=== PATIENT | male | born 1935 | race Caucasian/White ===

== ENCOUNTER 2018-10-01 03:53 | Inpatient (IN) ==
[2018-10-01] MEDS ORDERED: NS 1,000 ML IV ONE (04:17)
[2018-10-01] MEDS ORDERED: ZOFRAN IV ONE (04:17)
[2018-10-01 05:04] LABS: BASO# 0.02 X1000 (0.0-0.2); BASO% 0.2 % (0.0-0.8); EOS# 0.02 X1000 (0.0-0.7); EOS% 0.2 % (0.0-10.0); HEMATOCRIT 43.9 % (42.0-52.0); HEMOGLOBIN 14.1 g/dL (14.0-18.0); IMM GRAN# 0.06 X1000 (0.0-0.04); IMM GRAN% 0.6 % (0.0-0.5); LYMPH# 1.81 X1000 (1.2-3.4); LYMPH% 19.1 % (20.5-51.1); MCH 29.1 PG (27-31); MCHC 32.1 g/dL (33-37); MCV 90.7 FL (81-99); MONO# 1.24 X1000 (0.11-0.59); MONO% 13.1 % (1.7-9.3); MPV 10.9 FL (7.4-10.4); NEUT# 6.35 X1000 (1.4-6.5); NEUT% 66.8 % (42.2-75.2); PLT 134 X1000 (130-400); RBC 4.84 XMIL (4.7-6.1)
[2018-10-01 05:27] LABS: ALB/GLOB RATIO 1.7; ALBUMIN 4.1 g/dL (3.5-5.0); CALCIUM 9.2 mg/dL (8.8-10.2); CREATININE 1.3 mg/dL (0.7-1.2); POTASSIUM 3.9 mmol/L (3.5-5.1); TOTAL BILIRUBIN 0.76 mg/dL (0.20-1.00); TOTAL PROTEIN 6.5 g/dL (6.3-8.3)
[2018-10-01] MEDS ORDERED: TAMIFLU PO ONE (05:40)
--- NOTE | 2018-10-01 05:49 | PROVIDER DOCUMENTATION ---
HPI-General Adult - General Chief Complaint: Nausea/Vomiting Stated Complaint: FLU SX Time Seen by Provider: 10/01/18 04:07 Source: patient, family Allergies/Adverse Reactions: Patient Allergies Allergy/AdvReac Type Severity Reaction Status Date / Time Sulfa (Sulfonamide Allergy Unknown Verified 05/29/18 00:04 Antibiotics) amoxicillin trihydrate * AdvReac VOMITING Verified 05/29/18 00:04 [From Augmentin] potassium clavulanate * AdvReac VOMITING Verified 05/29/18 00:04 [From Augmentin] Home Medications: Home Medication List Medication Instructions Recorded Confirmed Last Taken Type Atenolol 50 mg PO BID 12/14/13 05/28/18 02/25/18 History Glimepiride 1 mg PO BID 02/25/18 05/28/18 02/25/18 History Chlorthalidone 25 mg PO DAILY PRN 05/28/18 05/28/18 Unknown History Clorazepate [Tranxene] 7.5 mg PO PRN PRN 05/28/18 05/28/18 Unknown History Finasteride [Proscar] 5 mg PO DAILY 05/28/18 05/28/18 Unknown History Losartan Potassium [Cozaar] 100 mg PO DAILY 05/28/18 05/28/18 Unknown History Tamsulosin HCl 0.4 mg PO QHS 05/28/18 05/28/18 Unknown History - History of Present Illness -Gen Adult Nature of Presenting Problems: Pt presents with flu like symptoms, x 3-4 days, cough, nasal congestion, body aches, n/v/d, pt upon arrival found to have O2 sat of 86% on RA, pt denies f/c, mercado, cp, ap, pt is lying in bed in no acute distress. Location of Pain/Injury: reports: generalized Pain Radiation: reports: no radiation Quality of Pain: reports: aching Severity: reports: mild Onset/Duration: reports: 4 days ago Timing: reports: still present Context/Activities at Onset: reports: none Modifying Factors: improves with: nothing Associated Symptoms: reports: cough, diarrhea, sinus congestion/drainage, nausea , vomiting Similar Symptoms Previously?: No Recently seen or treated by another doctor?: No Review of Systems - Adult - REVIEW OF SYSTEMS - ADULT Constitutional: reports: no symptoms reported Eyes: reports: no symptoms reported Ears, Nose, Mouth & Throat: reports: sinus problem Cardiovascular: reports: no symptoms reported Respiratory: reports: see HPI Gastrointestinal: reports: see HPI Genitourinary: reports: no symptoms reported Musculoskeletal: reports: no symptoms reported Integumentary: reports: no symptoms reported Neurological: reports: no symptoms reported Psychiatric: reports: no symptoms reported Endocrine: reports: no symptoms reported Hematologic/Lymphatic: reports: no symptoms reported Allergic/Immunologic: reports: no symptoms reported All Other Systems: Reviewed and Negative Past History - Adult - PAST MEDICAL HISTORY-ADULT Review of Records: reports: Old Records Reviewed, Nursing Assessment Review, Medications Reviewed, Social history reviewed & non-contributory. Major Childhood Illnesses: reports: denies history Cardiovascular: reports: CAD, HTN, hyperlipidemia, other (hole in heart- repaired) Respiratory: reports: denies history Gastrointestinal: reports: GERD Obstetrical/Gynecological: reports: denies history Genitourinary: reports: prostatitis (pt states has "prostate problems" ) Musculoskeletal: reports: denies history Neurological: reports: denies history Endocrine/Immune: reports: Diabetes, Leukemia (lymphatic; in remission) Other Conditions: reports: denies history, cataract/glaucoma - PRIOR SURGERIES/PROCEDURES Surgical/Procedure History: reports: appendectomy, CABG, orthopedic (extremity) (knee), other (prostate biopsy) - IMMUNIZATION STATUS Childhood Immunizations: See Nurse Assessment Flu Vaccine: See Nurse Assessment - FAMILY HISTORY Family History: reviewed, not pertinent Physical Exam-General - PHYSICAL EXAM-ADULT Initial Vital Signs Reviewed: Yes - CONSTITUTIONAL General Appearance: appears well - EYES Eyes: PERRL/EOMI - HEAD, EARS, NOSE, MOUTH & THROAT HENMT: normocephalic/atraumatic, normal ENT inspection - NECK Neck: full range of motion - RESPIRATORY Respiratory: lungs clear, no respiratory distress, no accessory muscle use - CARDIOVASCULAR Cardiovascular: regular rate, rhythm - GASTROINTESTINAL (ABDOMEN) Abdominal Exam: normal bowel sounds, non tender, soft - LYMPHATIC Lymphatic: no adenopathy - MUSCULOSKELETAL Back Exam: normal inspection Extremity: normal range of motion - SKIN Integumentary: normal color - NEUROLOGIC Neurologic: packing supervisor II-XII nml as tested - PSYCHIATRIC Psych/Mental Status: normal mood/affect Progress - PLAN OF CARE/RESULTS Progress/Plan/Lab Results: Vital Signs - 8 hr 10/01/18 03:58 Temperature 99.7 F H Pulse Rate 81 Respiratory Rate 17 Blood Pressure 126/66 O2 Sat by Pulse Oximetry 90 L 10/01/18 04:16 Influenza Screen - Final Nasopharyngeal Laboratory Results - last 24 hr 10/01/18 10/01/18 10/01/18 04:45 04:45 04:45 WBC 9.50 RBC 4.84 Hgb 14.1 Hct 43.9 MCV 90.7 MCH 29.1 MCHC 32.1 L RDW Std Deviation 14.0 Plt Count 134 MPV 10.9 H Immature Gran % (Auto) 0.6 H Neut % (Auto) 66.8 Lymph % (Auto) 19.1 L [place] % (Auto) 13.1 H Eos % (Auto) 0.2 Baso % (Auto) 0.2 Immature Gran # (Auto) 0.06 H Neut # (Auto) 6.35 Lymph # (Auto) 1.81 [place] # (Auto) 1.24 H Eos # (Auto) 0.02 Baso # (Auto) 0.02 Sodium 136 Potassium 3.9 Chloride 101 Carbon Dioxide 24 L Anion Gap 11 BUN 16 Creatinine 1.3 H Estimated GFR/1.73 m2 53 BUN/Creatinine Ratio 12 Glucose 146 H Calculated Osmolality 276 Calcium 9.2 Total Bilirubin 0.76 AST 35 H ALT 25 Alkaline Phosphatase 59 Troponin T Tth-Q-Swldqzxtkqm Pept Total Protein 6.5 Albumin 4.1 Globulin 2.4 Albumin/Globulin Ratio 1.7 Lipase 29 Plasma Lactate 1.1 10/01/18 10/01/18 04:45 04:45 WBC RBC Hgb Hct MCV MCH MCHC RDW Std Deviation Plt Count MPV Immature Gran % (Auto) Neut % (Auto) Lymph % (Auto) [place] % (Auto) Eos % (Auto) Baso % (Auto) Immature Gran # (Auto) Neut # (Auto) Lymph # (Auto) [place] # (Auto) Eos # (Auto) Baso # (Auto) Sodium Potassium Chloride Carbon Dioxide Anion Gap BUN Creatinine Estimated GFR/1.73 m2 BUN/Creatinine Ratio Glucose Calculated Osmolality Calcium Total Bilirubin AST ALT Alkaline Phosphatase Troponin T < 0.010 Plu-C-Apeuejuktzt Pept 169 Total Protein Albumin Globulin Albumin/Globulin Ratio Lipase Plasma Lactate Orders Category Date Time Status Nursing- Obtain EKG ONCE Care 10/01/18 04:16 Active cxr [CHEST-1 VIEW] [RAD] Stat Exams 10/01/18 04:16 Taken BLOOD CULTURE [BLDCUL] Stat Lab 10/01/18 04:56 Results CBC WITH ELECTRONIC DIFF [HEME] Stat Lab 10/01/18 04:45 Completed COMPREHENSIVE METABOLIC PANEL [CHEM] Stat Lab 10/01/18 04:45 Completed INFLUENZA SCREEN A/B Stat Lab 10/01/18 04:16 Completed LACTATE, PLASMA [CHEM] Stat Lab 10/01/18 04:45 Completed LIPASE [CHEM] Stat Lab 10/01/18 04:45 Completed PRO B-NATRIURETIC PEPTIDE Stat Lab 10/01/18 04:45 Completed TROPONIN T Stat Lab 10/01/18 04:45 Completed 0.9% Sodium Chloride Inj [Ns] 1,000 ml Med 10/01/18 04:17 Discontinued IV 999 mls/hr Ondansetron [Zofran] Med 10/01/18 04:17 Discontinued 8 mg IV NOW ONE Oseltamivir [Tamiflu] Med 10/01/18 05:40 Discontinued 75 mg PO NOW ONE EKG [EKG] Stat Ther 10/01/18 04:16 Ordered Pt is flu positive, will cover with tamiflu and admit Result Diagrams: 10/01/18 04:45 10/01/18 04:45 Departure - Departure Date of Disposition Decision: 10/01/18 Time of Disposition Decision: 05:50 DIAGNOSIS: Influenza A Disposition: ADMITTED INPATIENT 09 Certified Medical Emergency: Emergent Condition: Stable Referrals and Follow-Ups: Regan Luz MD [Primary Care Provider] - - Critical Care Note This patient required my direct & personal management of CC.: No Attestation - Physician/ SURYA Attestation Patient care was provided by Advanced Practice Provider:: No The physician spent face to face time with patient:: Yes Advanced Practice Provider documentation review:: Supervising physician onsite and consulted in the evaluation and care of this patient. The physician did have a face to face encounter with the patient.
[2018-10-01] MEDS ORDERED: ZOFRAN IV PRN (06:03)
[2018-10-01] MEDS ORDERED: TYLENOL PO PRN (06:03)
[2018-10-01] MEDS ORDERED: TRANXENE PO PRN (06:06)
--- NOTE | 2018-10-01 06:45 | HISTORY AND PHYSICAL ---
PRESENTING COMPLAIN: Nasal congestion, chills, fever, generalized weakness. HISTORY OF PRESENTING COMPLAINT: Mr. Bhandari is an 83-year-old male with a history of remote leukemia, hypertension, dyslipidemia, and structural heart defect, recurred in 1986, diabetes mellitus. Patient presented to the emergency department because of 3-day history of nasal congestion and cough associated with some low-grade temperature, generalized body aches, and weakness. Since yesterday, he also had some nausea and vomit, but no diarrhea. The patient felt so weak that he could not drive himself, so his granddaughter brought him to the emergency department in private vehicle. Upon presentation, patient was evaluated, was found to have O2 saturation in the 90s, temperature was 99.7 degrees. Patient was put on nasal cannula oxygen, which slightly improved his oxygenation. Initial investigation revealed that his flu was positive. We have been consulted for admission because of respiratory failure. PAST MEDICAL HISTORY: 1. Diabetes type 2. 2. Remote history of leukemia. 3. Hypertension. 4. Dyslipidemia. 5. Structural heart disease. PAST SURGICAL HISTORY: 1. Open heart surgery for a structural heart defect. 2. Prostate surgery. 3. Left knee surgery. 4. Appendectomy. FAMILY HISTORY: Significant for COPD and diabetes. ALLERGIES: Sulfa drugs, amoxicillin. SOCIAL HISTORY: The patient quit smoking in 1981. He is currently a . Denies any current tobacco use. No alcohol or drugs. Granddaughter lives with him. Patient is for most part, very self-sufficient. REVIEW OF SYSTEM: Fourteen-point review of system conducted with Mr. Bhandari, is unremarkable, except what we have in the HPI. HOME MEDICATIONS: Have also been reviewed, patient is currently on 1. Atenolol 50 mg b.i.d. 2. Glimepiride 1 mg b.i.d. 3. Chlorthalidone 25 daily. 4. Finasteride 5 mg daily. 5. Losartan 100 mg daily. 6. Tamsulosin 0.4 p.o. at bedtime. PHYSICAL EXAMINATION: VITAL SIGNS: Blood pressure is 126/66, pulse is 81, respiration is 17, temperature 99.7 degrees, patient was saturating 90% on room air. GENERAL: Mr. Bhandari is an 83-year-old male, he is in bed, did not seem to be in any cardiopulmonary distress. HEENT: Mucosa is pink and slightly dry. Anicteric. Acyanotic. NECK: Supple. RESPIRATORY SYSTEM: There is good air entry bilateral. A few crackles posteriorly, but no wheezing, no rhonchi. CARDIOVASCULAR: Regular rate and rhythm. There is no murmurs, no rubs, no gallops. [place] beat is at 5th intercostal space, midclavicular line. GASTROINTESTINAL: Abdomen is soft, nontender. Bowel sounds are present. EXTREMITIES: No pedal edema. Distal pulses are present. SLIPPER MAKER: Patient is awake, alert, oriented x4. Cranial nerves 2 to 12 have been grossly examined and they are unremarkable. Motor is 5/5 in all extremities. Sensation is intact. PSYCHIATRIC: Patient is very cooperative and has very good insight and judgment. MUSCULOSKELETAL: Sternotomy scar noted. The left knee surgical scar medially is also noted. LABORATORY DATA: WBC is 9.50, hemoglobin is 14.1, platelet count of 134,000. Chemistry is also reviewed. Creatinine is 1.3. Rest of chemistry is unremarkable. Flu serology is positive for influenza A. ASSESSMENT: 1. Acute hypoxemic respiratory failure. The patient is currently on nasal cannula. A chest x- ray does not show any consolidation. 2. Flu positive. Patient has been started on Tamiflu. 3. Acute renal failure. We will continue with the gentle hydration. 4. Diabetes mellitus. The patient is on glipizide at home. We will withhold this and put him on sliding scale for now. 5. Clinical volume depletion. Will continue with IV fluids. 6. History of benign prostatic hypertrophy. Will continue with his home medication, including tamsulosin and finasteride. 7. Hypertension, controlled. PLAN: In general, Mr. Bhandari is going to be admitted to the medical floor. We are going to continue adequate hydration, oxygen therapy for now, and start him on Tamiflu. We will re- evaluate him during the course of the day and give further recommendations. cc: Nilton Aceves MD
--- NOTE | 2018-10-01 07:32 | Diag Imaging Result Doc PS360 ---
CHEST-1 VIEW - 10/01/2018 INDICATION: sob COMPARISON: 02/25/2018 FINDINGS: Stable sternotomy wires. Heart size and pulmonary vascularity is normal. There is some increasing linear atelectasis in the right lung base. No suspicious infiltrates. No pneumothorax or pleural effusion. IMPRESSION: Linear atelectasis in the right lung base. Electronically signed by Isak Sapp 10/01/2018 7:30 AM
--- NOTE | 2018-10-01 08:03 | EKG Report ---
Test Performed on : 10/01/2018 04:37:37 AM Test Reason : sob Blood Pressure : / mmHG Vent. Rate : 074 BPM Atrial Rate : 074 BPM P-R Int : 146 ms QRS Dur : 096 ms QT Int : 338 ms P-R-T Axes : 001 -09 -75 degrees QTc Int : 375 ms Normal sinus rhythm. Nonspecific T wave abnormality Abnormal ECG When compared with ECG of 28-MAY-2018 23:17, No significant change was found Unconfirmed Result
[2018-10-01] MEDS: TENORMIN PO SCH ×2 (08:55→21:18)
[2018-10-01] MEDS: COZAAR PO SCH (08:55)
[2018-10-01] MEDS: TAMIFLU PO SCH ×2 (08:55→21:17)
[2018-10-01] MEDS: PROSCAR PO SCH (08:55)
[2018-10-01] MEDS: LOVENOX SUBQ SCH (08:55)
[2018-10-01] MEDS: NS 1,000 ML IV SCH ×2 (08:56→18:55)
[2018-10-01] MEDS: HUMULIN R SUBQ SCH ×4 (12:59→21:18)
--- NOTE | 2018-10-01 16:26 | PROGRESS NOTE ---
DATE: 10/01/2018 SUBJECTIVE: Patient admitted early this morning with generalized weakness, cough. Found to be flu positive and with a slight LOLITA. The patient reports feeling somewhat better after IV fluids. He continues to have some largely nonproductive cough and generalized body aches. No suzie fevers. He reports increase in urine output. No other infection identified. PLAN: We will continue IV fluids overnight for the patient's mild LOLITA. Creatinine 1.3, baseline creatinine 1.0. As long as patient tolerates liquids and kidney function improves, suspect he will be able to be discharged home tomorrow.
[2018-10-01] MEDS ORDERED: FLOMAX PO SCH (21:00)
[2018-10-02] MEDS: LOVENOX SUBQ SCH (06:00)
[2018-10-02] MEDS: NS 1,000 ML IV SCH (06:01)
[2018-10-02] MEDS: HUMULIN R SUBQ SCH ×2 (06:41→11:12)
[2018-10-02 07:20] LABS: BASO# 0.02 X1000 (0.0-0.2); BASO% 0.3 % (0.0-0.8); EOS# 0.07 X1000 (0.0-0.7); EOS% 1.1 % (0.0-10.0); HEMATOCRIT 42.6 % (42.0-52.0); HEMOGLOBIN 13.3 g/dL (14.0-18.0); IMM GRAN# 0.05 X1000 (0.0-0.04); IMM GRAN% 0.8 % (0.0-0.5); LYMPH# 2.48 X1000 (1.2-3.4); LYMPH% 37.9 % (20.5-51.1); MCHC 31.2 g/dL (33-37); MCV 92.8 FL (81-99); MONO# 1.16 X1000 (0.11-0.59); MONO% 17.7 % (1.7-9.3); MPV 11.3 FL (7.4-10.4); NEUT# 2.77 X1000 (1.4-6.5); NEUT% 42.2 % (42.2-75.2); PLT 124 X1000 (130-400); RBC 4.59 XMIL (4.7-6.1); RDW 14.5 % (11.5-14.5); WBC 6.55 X1000 (4.8-10.8)
--- NOTE | 2018-10-02 07:23 | Diag Imaging Result Doc PS360 ---
CHEST-PORTABLE - 10/02/2018 INDICATION: respiratory failure COMPARISON: 10/01/2018 FINDINGS: The lungs are normally expanded and clear. Heart size and mediastinal contours are normal. No pneumothorax or pleural effusion. Stable sternotomy wires. IMPRESSION: Negative exam. Electronically signed by Isak Sapp 10/02/2018 7:21 AM
[2018-10-02 07:52] LABS: ALB/GLOB RATIO 1.3; ALBUMIN 3.4 g/dL (3.5-5.0); CALCIUM 7.7 mg/dL (8.8-10.2); CREATININE 1.2 mg/dL (0.7-1.2); MAGNESIUM 1.7 mg/dL (1.5-2.7); POTASSIUM 3.5 mmol/L (3.5-5.1); TOTAL BILIRUBIN 0.46 mg/dL (0.20-1.00)
[2018-10-02] MEDS: COZAAR PO SCH (08:40)
[2018-10-02] MEDS: TENORMIN PO SCH (08:40)
[2018-10-02] MEDS: PROSCAR PO SCH (08:40)
[2018-10-02] MEDS: TAMIFLU PO SCH (08:40)
[2018-10-02 15:27] VITALS: BP 116/61
--- NOTE | 2018-10-02 18:33 | DISCHARGE SUMMARY ---
ADMISSION DATE: 10/01/2018 DISCHARGE DATE: 10/02/2018 DISCHARGE DIAGNOSES: 1. Acute kidney injury. 2. Dehydration. 3. Acute influenza A. HOSPITAL COURSE: Briefly, an 83-year-old male presenting with congestion, low-grade temperatures, cough, not quite sure if he was truly hypoxic. No white count. Chest x-ray was negative. He was flu positive and he was admitted for treatment. He was placed on Tamiflu and some gentle hydration. His creatinine was about 1.3. After hydration, it went down to 1.2. His labs on the day of discharge were stable. He still had some fever the night before, 101 around 1600, and the patient was felt stable for discharge. DISCHARGE MEDICATIONS: 1. Flomax 0.4 daily. 2. Latanoprost 0.05% 1 drop at bedtime. 3. Amlodipine 2.5 daily. 4. Atenolol 50 daily. 5. Timolol 1 drop daily. 6. Finasteride 5 daily. 7. Glimepiride 1, unclear, daily. 8. Ecru p.r.n. 9. Loratadine 10 daily. 10. Losartan 100 daily. 11. Tamiflu 75 b.i.d. to complete his 5 days 10 doses. DISCHARGE CONDITION: Stable. cc: MD Regan Lin MD
== END 2018-10-02 16:50 | disposition home or self-care (01) | DRG 194 ==
LOC: ED 03:53 → SUATTDRO 06:57 → 3N 06:57
PROVIDERS: ATTEND Internal Medicine
CPT/HCPCS: 71010; 71045; 80053; 82948; 83605; 83690; 83735; 83880; 84443; 84484; 85025; 87040; 87275; 87276; 87804; 93005; 96361; 96374; 97162; 97530; 99285; A9270; J1650; J2405; J7030; S0138; XXXXX